=== PATIENT | male | born 1990 | race Caucasian/White ===

== ENCOUNTER 2018-06-29 03:50 | Emergency (ER) | payer OTHER ==
[~2018-06-29] VITALS: Ht 172.7 cm; Wt 74.8 kg
[2018-06-29 04:35] LABS: BASO % 1 % (0-3); EOS % 1 % (0-3); HEMATOCRIT 45.8 % (39.0-53.0); HEMOGLOBIN 16.3 g/dL (13.0-17.5); LYMPH # 1.9 x10^3/uL (1.0-4.8); LYMPH % 29 % (24-48); MEAN CORPUSCULAR HEMOGLOBIN 31 pg (25-35); MEAN CORPUSCULAR HGB CONC 36 g/dL (31-37); MEAN CORPUSCULAR VOLUME 87 fL (79-100); MONO # 0.3 x10^3/uL (0.0-1.1); MONO % 5 % (0-9); NEUT # 4.4 x10^3uL (1.8-7.7); NEUT % 65 % (31-73); PLATELET COUNT 317 x10^3/uL (140-400); RED BLOOD COUNT 5.27 x10^6/uL (4.30-5.70); RED CELL DISTRIBUTION WIDTH 13.1 % (11.5-14.5); WHITE BLOOD COUNT 6.7 x10^3/uL (4.0-11.0)
[2018-06-29 04:44] LABS: BILIRUBIN,URINE NEGATIVE (NEG); CLARITY,URINE CLEAR; COLOR,URINE YELLOW; NITRITE,URINE NEGATIVE (NEG); PH,URINE 5.5; PROTEIN,URINE NEGATIVE (NEG-TRACE); UROBILINOGEN,URINE 0.2 mg/dL (0.2 mg/dL)
[2018-06-29 04:48] LABS: CALCIUM 9.1 mg/dL (8.5-10.1); CREATININE 0.9 mg/dL (0.7-1.3); GFR 100.5
[2018-06-29 04:49] LABS: BACTERIA,URINE 0 /HPF (0-FEW); BARBITURATES NEG (NEG); BENZODIAZEPINES NEG (NEG); CANNABINOIDS NEG (NEG); COCAINE NEG (NEG); METHADONE NEG (NEG); OPIATES NEG (NEG); PHENCYCLIDINE NEG (NEG); RBC,URINE 0 /HPF (0-2); SQUAMOUS EPITHELIAL CELL,UR OCC /LPF; WBC,URINE OCC /HPF (0-4)
[2018-06-29 04:56] LABS: ALBUMIN 4.8 g/dL (3.4-5.0); ALBUMIN/GLOBULIN RATIO 1.3 (1.0-1.7); MAGNESIUM 2.4 mg/dL (1.8-2.4); TOTAL BILIRUBIN 0.2 mg/dL (0.2-1.0); TOTAL PROTEIN 8.4 g/dL (6.4-8.2)
[2018-06-29 04:57] LABS: AMPHETAMINE/METHAMPHETAMINE NEG (NEG); ETHANOL 266 mg/dL (0-10); SALIC 3.5 mg/dL (2.8-20.0)
[2018-06-29 04:58] LABS: ACETAMIN < 2 mcg/ml (10-30)
[2018-06-29] MEDS ORDERED: IBUPROFEN 600 MG TABLET. PO ONE (05:00)
--- NOTE | 2018-06-29 05:45 | PHYS DOC ---
Past Medical History Past Medical History: Hypertension Additional Past Medical Histor: Prior suicidal attempt, prior inpatient psychiatric admission Additional Past Surgical Histo: NOSE Alcohol Use: Occasionally Additional Information: 17 BEERS TONIGHT Drug Use: Marijuana Adult General Chief Complaint Chief Complaint: SUICDAL IDEATION HPI HPI Patient is a 27 yo male with complaint of suicidal ideation. Per EMS patient was found walking along the side of the road. When EMS arrived he reported he had suicidal ideation and wanted to talk to someone. EMS transported patient to ED and he arrived at 0350. Patient reports that his girlfriend broke up with him yesterday and that he was upset about the [employer] postseason loss, so he began drinking heavily at a bar. When the bar closed patient had no means of transportation so he began walking. He does report he has some memory loss between leaving the bar and being picked up by EMS. He reports that he has no plan to kill himself or to kill anyone else, although he has previously tried to commit suicide several times (last attempt 4 years ago), overdosing on pills , attempting to shoot himself with a gun which misfired, and cutting his wrists. 3 years ago he was part of a psychiatric treatment program in [place] because of suicidal ideation and was started on anti-anxiety medication , and while he felt the medication helped with his SI he stopped taking it 6 months after starting because he "does not want to depend on medication". He denies using drugs tonight but does admit to drinking several beers. Patient also admits to smoking. Patient denies hallucinations or homicidal ideation. He reports the [facility] has diagnosed him with "high blood sugar but not diabetes" and hypertension, but he admits he does not take medication because "[facility] are [facility] and I dont trust [facility]". He admits to taking one dose of 800 mg ibuprofen every other day for chronic joint pain from past injuries in R shoulder and R knee. He denies any other symptoms. HPI limited due to acute ETOH intoxication. Review of Systems Review of Systems Constitutional: Denies fever or chills [] Eyes: Denies change in visual acuity, redness, or eye pain [] HENT: Denies nasal congestion or sore throat [] Respiratory: Denies cough or shortness of breath [] Cardiovascular: Denies chest pain, or palpitations. GI: Denies abdominal pain, nausea, vomiting, bloody stools or diarrhea [] : Denies dysuria or hematuria [] Musculoskeletal: Denies back pain. Admits chronic R shoulder and R knee pain. Integument: Denies rash or skin lesions [] Neurologic: Focal weakness or sensory changes. Admits to headache which thinks is his hangover beginning. ROS limited due to acute intoxication. Current Medications Current Medications Current Medications Medications (Trade) Dose Ordered Sig/Petra Start Time Stop Time Status Last Admin Dose Admin Ibuprofen (Motrin) 600 mg 1X ONCE 06/29/18 05:00 06/29/18 05:01 DC 06/29/18 04:40 600 MG Allergies Allergies Allergies Coded Allergies Type Severity Reaction Last Updated Verified No Known Drug Allergies 10/19/15 No Physical Exam Physical Exam Constitutional: Well developed, well nourished, no acute distress, non-toxic appearance, intoxicated HENT: Normocephalic, atraumatic, oropharynx moist, Eyes: PERRL, EOMI, conjunctiva erythematous, horizontal nystagmus Neck: Normal range of motion, no tenderness, supple, no stridor. [] Cardiovascular: Heart rate regular rhythm, no murmur [] Lungs & Thorax: Bilateral breath sounds clear to auscultation [] Abdomen: Soft, no tenderness Skin: Warm, dry, no erythema, no rash. Tattoos present bilateral forearms and back. Back: No tenderness, Extremities: No tenderness, ROM intact, no edema Neurologic: Alert and oriented X 3, normal motor function, normal sensory function, no focal deficits noted. No clonus in either lower extremity. Psychologic: Affect anxious, Current Patient Data Vital Signs Vital Signs Date Time Temp Pulse Resp B/P (MAP) Pulse Ox O2 Delivery O2 Flow Rate FiO2 06/29/18 06:30 80 18 96/56 (69) 99 06/29/18 04:07 98.0 Room Air 98.0 Lab Values Laboratory Tests Test 06/29/18 04:25 White Blood Count 6.7 x10^3/uL (4.0-11.0) Red Blood Count 5.27 x10^6/uL (4.30-5.70) Hemoglobin 16.3 g/dL (13.0-17.5) Hematocrit 45.8 % (39.0-53.0) Mean Corpuscular Volume 87 fL (79-100) Mean Corpuscular Hemoglobin 31 pg (25-35) Mean Corpuscular Hemoglobin Concent 36 g/dL (31-37) Red Cell Distribution Width 13.1 % (11.5-14.5) Platelet Count 317 x10^3/uL (140-400) Neutrophils (%) (Auto) 65 % (31-73) Lymphocytes (%) (Auto) 29 % (24-48) Monocytes (%) (Auto) 5 % (0-9) Eosinophils (%) (Auto) 1 % (0-3) Basophils (%) (Auto) 1 % (0-3) Neutrophils # (Auto) 4.4 x10^3uL (1.8-7.7) Lymphocytes # (Auto) 1.9 x10^3/uL (1.0-4.8) Monocytes # (Auto) 0.3 x10^3/uL (0.0-1.1) Eosinophils # (Auto) 0.0 x10^3/uL (0.0-0.7) Basophils # (Auto) 0.0 x10^3/uL (0.0-0.2) Urine Collection Type Unknown Urine Color Yellow Urine Clarity Clear Urine pH 5.5 Urine Specific [place] 1.010 Urine Protein Negative mg/dL (NEG-TRACE) Urine Glucose (UA) Negative mg/dL (NEG) Urine Ketones (Stick) Negative mg/dL (NEG) Urine Blood Negative (NEG) Urine Nitrite Negative (NEG) Urine Bilirubin Negative (NEG) Urine Urobilinogen Dipstick 0.2 mg/dL (0.2 mg/dL) Urine Leukocyte Esterase Negative (NEG) Urine RBC 0 /HPF (0-2) Urine WBC Occ /HPF (0-4) Urine Squamous Epithelial Cells Occ /LPF Urine Bacteria 0 /HPF (0-FEW) Sodium Level 146 mmol/L (136-145) H Potassium Level 4.0 mmol/L (3.5-5.1) Chloride Level 106 mmol/L (98-107) Carbon Dioxide Level 29 mmol/L (21-32) Anion Gap 11 (6-14) Blood Urea Nitrogen 8 mg/dL (8-26) Creatinine 0.9 mg/dL (0.7-1.3) Estimated GFR (Cockcroft-Gault) 100.5 BUN/Creatinine Ratio 9 (6-20) Glucose Level 124 mg/dL (70-99) H Calcium Level 9.1 mg/dL (8.5-10.1) Magnesium Level 2.4 mg/dL (1.8-2.4) Total Bilirubin 0.2 mg/dL (0.2-1.0) Aspartate Amino Transferase (AST) 27 U/L (15-37) Alanine Aminotransferase (ALT) 76 U/L (16-63) H Alkaline Phosphatase 65 U/L (46-116) Total Protein 8.4 g/dL (6.4-8.2) H Albumin 4.8 g/dL (3.4-5.0) Albumin/Globulin Ratio 1.3 (1.0-1.7) Salicylates Level 3.5 mg/dL (2.8-20.0) Salicylate Last Dose Date Salicylate Last Dose Time Urine Opiates Screen Neg (NEG) Urine Methadone Screen Neg (NEG) Acetaminophen Level < 2 mcg/ml (10-30) L Acetaminophen Last Dose Date Acetaminophen Last Dose Time Urine Barbiturates Neg (NEG) Urine Phencyclidine Screen Neg (NEG) Urine Amphetamine/Methamphetamine Neg (NEG) Urine Benzodiazepines Screen Neg (NEG) Urine Cocaine Screen Neg (NEG) Urine Cannabinoids Screen Neg (NEG) Ethyl Alcohol Level 266 mg/dL (0-10) H Urine Ethyl Alcohol Pos (NEG) Laboratory Tests 06/29/18 04:25 Laboratory Tests 06/29/18 04:25 EKG EKG [] Radiology/Procedures Radiology/Procedures [] Course & Med Decision Making Course & Med Decision Making Patient is pleasant 27 yo male with complaint of suicidal ideation, although he denies having plan. Patient denies hallucinations, drug use, or homicidal ideation. He reports his girlfriend broke up with him yesterday and he was drinking heavily this evening, which lead to his suicidal feelings. On physical exam patient is well developed, well nourished, appears intoxicated, with some paranoid thoughts. On physical exam patient's vitals and examination were WNL. Labs revealed ETOH > 200. Awaiting PAT evaluation. Patient was signed out to Dr. Rodríguez for further evaluation and decision on final disposition. Discussed current findings and plan with patient, who acknowledges understanding and agreement. Note of Dr Rodríguez @[id number]: Patient care transferred to de at [address] Crenshaw. She was sleeping without problem and denied suicidal and homicidal ideation and hallucination. Patient was alert and oriented. Patient was evaluated by psychiatric supervisor remelt did not have criteria for inpatient treatment for suicidal ideation.Adult detox unit admission was provided for patient and prescription for Librium was faxed to the unit. Patient informed about plan of care and needs for transferring to detox unit and he agreed with plan of care. Dragon Disclaimer Dragon Disclaimer This electronic medical record was generated, in whole or in part, using a voice recognition dictation system. Departure Departure Impression: Primary Impression: Suicidal ideation Additional Impression: Alcohol intoxication Disposition: HOME, SELF-CARE (Adult detox unit) Condition: IMPROVED Referrals: UNKNOWN PCP NAME (PCP) Patient Instructions: Alcohol Intoxication, Suicidal Feelings, How to Help Yourself Additional Instructions: Follow-up with adult detox unit instruction Scripts Chlordiazepoxide Hcl (CHLORDIAZEPOXIDE HCL) 10 Mg Capsule 10 MG PO QID, #20 CAP Prov: SHOSHANA RODRÍGUEZ MD 06/29/18 Problem Qualifiers Additional Impression: Alcohol intoxication Complication of substance-induced condition: with delirium Qualified Codes: F10.921 - Alcohol use, unspecified with intoxication delirium MOLLY CRENSHAW DO Jun 29, 2018 05:44 SHOSHANA RODRÍGUEZ MD Jun 29, 2018 07:07
[2018-06-29] MEDS ORDERED: CHLO10CA5 PO (07:06)
[2018-06-29 07:30] VITALS: BP 114/61
== END 2018-06-29 08:07 | disposition home or self-care (01) ==
LOC: ER 03:50
DX: R45.851 Suicidal ideations (principal); F10.921 Alcohol use, unspecified with intoxication delirium; G89.29 Other chronic pain; I10 Essential (primary) hypertension
CPT/HCPCS: 36415; 80053; 80307; 80329; 81001; 83735; 85025; 99284; G0480; G6039